=== PATIENT | male | born 1955 | race Caucasian/White ===

== ENCOUNTER 2021-04-13 11:45 | Emergency (ER) | payer OTHER, MEDICAID ==
[~2021-04-13] VITALS: Ht 167.6 cm; Wt 81.6 kg
[2021-04-13 12:00] VITALS: BP 127/80
--- NOTE | 2021-04-13 12:02 | NUR ---
[facility] EXAMINING PT IN TRIAGE
--- NOTE | 2021-04-13 12:03 | NUR ---
PT TO AWAIT LOBBY
[2021-04-13] MEDS ORDERED: KETOROLAC 30 MG/ML VIAL IM ONE (12:05)
[2021-04-13] MEDS ORDERED: NAPR-54 PO (12:17)
[2021-04-13] MEDS ORDERED: METH-1681 PO (12:17)
--- NOTE | 2021-04-13 12:43 | NUR ---
PAIN MEDICATION ADMINISTERD, WILL CONTINUE TO MONITOR
--- NOTE | 2021-04-13 12:55 | NUR ---
PT ASKING TO WAIT IN LOBBY.
[2021-04-13 13:00] VITALS: BP 122/74
--- NOTE | 2021-04-13 13:01 | NUR ---
Patient discharged with v/s stable. Written and verbal after care instructions given and explained. Patient alert, oriented and verbalized understanding of instructions. Ambulatory with steady gait. All questions addressed prior to discharge. ID band removed. Patient advised to follow up with PMD. Rx of NAPROXEN AND ROBAXIN given. Patient educated on indication of medication including possible reaction and side effects. Opportunity to ask questions provided and answered.
== END 2021-04-13 13:01 | disposition home or self-care (01) ==
LOC: MED 11:45
DX: M79.10 Myalgia, unspecified site (principal); V98.8XXA Other specified transport accidents, initial encounter; Y93.89 Activity, other specified; Y92.89 Other specified places as the place of occurrence of the external cause; Y99.8 Other external cause status
CPT/HCPCS: 96372; 99283; J1885